=== PATIENT | female | born 1980 | race Caucasian/White ===

== ENCOUNTER 2018-05-04 16:55 | Emergency (ER) | payer OTHER ==
[~2018-05-04] VITALS: Ht 152.4 cm; Wt 97.5 kg
[~2018-05-04 16:55] MED LIST: HYZAAR 100-121 UDTAB; NAPR500T14 PO
== END 2018-05-04 22:12 | disposition home or self-care (01) ==
LOC: ER 16:55
DX: N83.292 Other ovarian cyst, left side (principal)

== ENCOUNTER 2020-06-14 06:39 | Day surgery (SDC) | payer OTHER ==
[~2020-06-14 06:39] MED LIST changes: +CLONAZEPAM1 MG PO; +COZAAR50 MG PO; +TOPROL XL100 M1 PO
[2020-06-14] MEDS ORDERED: POLY119PG PO (14:39)
[2020-06-14] MEDS ORDERED: SURFAK240 M1 PO (14:39)
[2020-06-14] MEDS ORDERED: ULTRAM50 MG PO (14:39)
== END 2020-06-14 18:55 | disposition home or self-care (01) ==
LOC: CIR.AMB 06:39
PROVIDERS: ATTEND Surgery
DX: K80.10 Calculus of gallbladder with chronic cholecystitis without obstruction (principal); K42.9 Umbilical hernia without obstruction or gangrene; Z20.822 Contact with and (suspected) exposure to COVID-19

== ENCOUNTER 2022-01-24 09:29 | Outpatient (CLI) | payer OTHER ==
[~2022-01-24 09:29] MED LIST changes: +POLY119PG PO; +SURFAK240 M1 PO; +ULTRAM50 MG PO
== END 2022-01-24 09:32 | disposition home or self-care (01) ==
LOC: SONOGRAMA 09:29
PROVIDERS: ATTEND Pathology Anatomic Pathology & Clinical Pathology
DX: E04.1 Nontoxic single thyroid nodule (principal)